=== PATIENT | female | born 1955 | race Caucasian/White ===

== ENCOUNTER → 2019-12-12 14:53 | Outpatient (CLI) | payer OTHER, SELFPAY ==
[2019-12-12 15:49] LABS: Add Manual Diff / Slide Review NO; Basophils Absolute Auto 100 /uL (0-100); Basophils Percent Auto 0.7 % (0-2); Eosinophils Absolute Auto 100 /uL (0-450); Eosinophils Percent Auto 1.9 % (2-4); Hematocrit 45.8 % (36-46); Hemoglobin 15.1 g/dL (12.0-16.0); Lymphocytes Absolute Auto 1400 /uL (1100-4500); Lymphocytes Percent Auto 18.6 % (25-40); Mean Corpuscular Hemoglobin 28.3 PG (26-34); Mean Corpuscular Volume 85.8 fL (80-100); Monocytes Absolute Auto 500 /uL (0-900); Monocytes Percent Auto 6.9 % (3-14); Neutrophils Absolute Auto 5500 /uL (1500-7000); Neutrophils Percent Auto 71.9 % (50-75); Platelet Count 336 X10^3/uL (150-400); Red Blood Cell Count 5.34 X10^6/uL (4.0-5.2); White Blood Cell Count 7.6 X10^3/uL (4.5-11.0)
[2019-12-12 16:15] LABS: Alanine Aminotransferase 10 IU/L (<35); Albumin 4.2 g/dL (3.5-5.0); Albumin Globulin Ratio 1.4 (1.0-2.8); Alkaline Phosphatase 71 U/L (38-126); Aspartate Aminotransferase 22 IU/L (14-36); BUN Creatinine Ratio 14.5 (6-22); Bilirubin Total 0.4 mg/dL (0.2-1.3); Blood Urea Nitrogen 10 mg/dL (7-17); C-Reactive Protein Quant 1.2 mg/dL (<1.0); Calcium 9.1 mg/dL (8.4-10.2); Carbon Dioxide 30 mmol/L (22-32); Chloride 97 mmol/L (98-107); Estimated Glomerular Filt Rate > 60.0 mL/min (>60); Glucose 90 mg/dL (80-110); HEMOLYSIS < 15 (0-50); Potassium 4.9 mmol/L (3.4-5.1); Sodium 133 mmol/L (137-145); Total Protein 7.2 g/dL (6.3-8.2)
== END ==
PROVIDERS: PCP Family Medicine; Referring Provider Family Medicine; Visit Provider Family Medicine
DX: N63.20 Unspecified lump in the left breast, unspecified quadrant (principal)
CPT/HCPCS: 36415; 80053; 85025; 86140

== ENCOUNTER → 2020-06-16 15:38 | Outpatient (CLI) | payer OTHER, SELFPAY ==
[2020-06-16 16:42] LABS: BUN Creatinine Ratio 22.4 (6-22); Blood Urea Nitrogen 13 mg/dL (7-17); Estimated Glomerular Filt Rate > 60.0 mL/min (>60)
== END ==
PROVIDERS: PCP Family Medicine; Referring Provider Family Medicine; Visit Provider Family Medicine
DX: C50.919 Malignant neoplasm of unspecified site of unspecified female breast (principal); Z01.812 Encounter for preprocedural laboratory examination
CPT/HCPCS: 36415; 82565; 84520

== ENCOUNTER → 2020-07-31 07:46 | Outpatient (CLI) | payer OTHER, SELFPAY ==
[2020-07-31 10:01] LABS: Add Manual Diff / Slide Review NO; Basophils Absolute Auto 0 /uL (0-100); Basophils Percent Auto 0.6 % (0-2); Eosinophils Absolute Auto 100 /uL (0-450); Hematocrit 44.1 % (36-46); Lymphocytes Absolute Auto 1000 /uL (1100-4500); Lymphocytes Percent Auto 15.5 % (25-40); Mean Corpuscular Hemoglobin 28.4 PG (26-34); Mean Corpuscular Volume 83.4 fL (80-100); Monocytes Absolute Auto 400 /uL (0-900); Monocytes Percent Auto 6.9 % (3-14); Neutrophils Absolute Auto 4800 /uL (1500-7000); Platelet Count 318 X10^3/uL (150-400); Red Blood Cell Count 5.28 X10^6/uL (4.0-5.2); Red Cell Distribution Width 13.2 % (11.6-14.8); White Blood Cell Count 6.3 X10^3/uL (4.5-11.0)
[2020-07-31 10:19] LABS: Alanine Aminotransferase 12 IU/L (<35); Albumin 4.2 g/dL (3.5-5.0); Albumin Globulin Ratio 1.4 (1.0-2.8); Alkaline Phosphatase 75 U/L (38-126); Aspartate Aminotransferase 25 IU/L (14-36); BUN Creatinine Ratio 18.2 (6-22); Bilirubin Total 0.4 mg/dL (0.2-1.3); Blood Urea Nitrogen 10 mg/dL (7-17); Calcium 8.9 mg/dL (8.4-10.2); Carbon Dioxide 27 mmol/L (22-32); Chloride 95 mmol/L (98-107); Cholesterol 176 mg/dL (140-199); Estimated Glomerular Filt Rate > 60.0 mL/min (>60); Globulin 2.9 g/dL (1.7-4.1); Glucose 86 mg/dL (80-110); HDL Cholesterol 39 mg/dL (40-60); HEMOLYSIS < 15 (0-50); LDL Cholesterol Calculated 118 mg/dL (<100); Potassium 4.4 mmol/L (3.4-5.1); Sodium 130 mmol/L (137-145); Total Protein 7.1 g/dL (6.3-8.2); Triglycerides 97 mg/dL (35-150)
== END ==
PROVIDERS: PCP Family Medicine; Referring Provider Family Medicine; Visit Provider Family Medicine
DX: Z00.00 Encounter for general adult medical examination without abnormal findings (principal); Z01.812 Encounter for preprocedural laboratory examination; C50.919 Malignant neoplasm of unspecified site of unspecified female breast
CPT/HCPCS: 36415; 80053; 80061; 82670; 83001; 85025

== ENCOUNTER → 2020-09-01 16:17 | Outpatient (CLI) | payer OTHER, SELFPAY | PROVIDERS: PCP Family Medicine; Visit Provider Nurse Practitioner Family | DX: L60.8 Other nail disorders (principal) | CPT/HCPCS: 87102 ==

== ENCOUNTER 2024-05-22 09:00 | Emergency (ER) | payer MEDICARE, OTHER, SELFPAY ==
[2024-05-22] VITALS (13 sets, daily range): BP systolic 113–148; BP diastolic 56–93; PULSE 103–142; RESP 14–27; TEMP 37.1; O2SAT 94–98; BMI 25.2
--- NOTE | 2024-05-22 09:03 | DI.RAD.S_ITS ---
PROCEDURE: XR CHEST 1V INDICATIONS: chest pain TECHNIQUE: One view of the chest was acquired. COMPARISON: CT, CT CHEST ABDOMEN PELVIS WITH CONTRAST, 07/05/2020, 14:29. FINDINGS: Surgical changes and devices: Several surgical clips left breast, probable prior breast carcinoma surgery. Lungs and pleura: Lungs are clear. No pleural effusions or pneumothorax. Chronic mild elevation of the right hemidiaphragm. Mild linear scarring lateral left lower lobe. Mediastinum: Mediastinal contours appear normal. Heart size is normal. Bones and chest wall: No suspicious bony lesions. Overlying soft tissues appear unremarkable. IMPRESSION: No acute cardiopulmonary abnormality is seen. Dictated by: Patrick Malcolm M.D. on 05/22/2024 at 9:30 Approved by: Patrick Malcolm M.D. on 05/22/2024 at 9:31
--- NOTE | 2024-05-22 09:07 | EKG_ITS ---
[address] [address] Test Date: 2024-05-22 Pat Name: Celeste Miles Department: [facility] Room: Gender: Female Sales Assistant: MAURISIO : 1955 Requested By: Order Number: [id number] Reading MD: Yasmani Joseph MD Measurements Intervals [place] Rate: 135 P: 18 MI: 112 QRS: 39 QRSD: 66 T: 13 QT: 300 QTc: 450 Interpretive Statements Sinus tachycardia Electronically Signed On 05-23-2024 6:49:34 PST by Yasmani Joseph MD
--- NOTE | 2024-05-22 09:35 | ED.ARRPALP ---
HPI - Arrhythmia/Palpitations General Chief Complaint: Arrhythmia/Palpitations Stated Complaint: afib Time Seen by Provider: 05/22/24 09:31 Source: patient, RN notes reviewed and old records reviewed Mode of arrival: Family Vehicle Limitations: no limitations History of Present Illness HPI narrative: 68-year-old female with history of breast cancer on letrozole and Xanax PRN, remote history of atrial fibrillation 1st onset was in 1988 was on digoxin intermittently episode stopped after menopause patient is not anticoagulated or on any rate control medications. Patient states in the past she was also had had improvement with a quarter tablet of 0.25 mg alprazolam she has a lot of palpitations and anxiety. Patient states earlier this morning started feeling her heart rate was elevated in the 150 she stated and actually feel your regular it was more regular. Denies any chest pain or pressure, no shortness of breath. No fevers or chills. No cough cold or congestion. No new swelling in extremities no issues with bowel movements or urination. No nausea or vomiting. No syncope. Patient notes feels little bit different when she was had her atrial fibular episodes which feel more in her neck this felt a little bit more epigastric. She has been noted to sometimes have an elevated heart rate with her oncology visits but reports she was sinus tach and I regular. States current medications or letrozole and Xanax PRN. She is currently in treatment has had lumpectomy and prior knee surgery. No known drug allergies. No tobacco, alcohol or recreational drugs. Patient has not had any long distance travel. Follows locally for primary care with . Oncology is Dr. Kang with [facility] oncology. Related Data Previous Rx's Medication Instructions Recorded alprazolam 0.25 mg tablet 0.25 mg PO Q DAY PRN PRN anxiety 07/26/20 #20 tabs ketoconazole 2 % topical cream 1 applic topical BID #30 grams 09/01/20 alprazolam 0.25 mg tablet 0.25 mg PO DAILY PRN anxiety #10 05/22/24 tabs Allergies Allergy/AdvReac Type Severity Reaction Status Date / Time No Known Allergies Allergy Uncoded 03/05/23 08:11 Review of Systems Review of Systems ROS Unobtainable: All systems reviewed & are unremarkable except as noted in HPI and below Patient History Medical History (Updated 02/13/25 @ 12:22 by Melissa Reaves DO) Rosacea Mumps Measles Vertigo Mild acquired hearing loss Mild cataract of left eye Hemorrhoids (2005) Atrial fibrillation 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 Mother No problems noted. Social History marital status: number of children: 1 household members: spouse education level: college occupational status: employed (self employed) Smoking Status: Never smoker alcohol intake: current (social) substance use type: does not use Smoking Status: Never smoker Exam Narrative Exam Narrative: GENERAL: Alert and oriented x three, female in mild distress HEENT: Head normocephalic, atraumatic, EOMI, pupils reactive, face symmetric, moist mucous membranes NECK: Supple, full range of motion CARDIOVASCULAR: Tachycardic and regular without murmurs, rubs or gallops. No edema. No JVD. Heart rates proximally 120s on monitor. RESPIRATORY: Breath sounds equal bilaterally, no wheezes rales or rhonchi. No tachypnea or accessory muscle use. ABDOMEN: Soft, nontender. Normoactive bowel sounds all 4 quadrants. No guarding or rebound, rigidity, no mass : No CVA tenderness EXTREMITIES: Normal range of motion, no clubbing or edema. Neurovascularly intact NEUROLOGICAL: Cranial nerves II through XII grossly intact. Moving all extremities SKIN: Warm, dry, no petechiae, no rashes or lesions. Initial Vital Signs Initial Vital Signs: Vital Signs Temperature 98.7 F 05/22/24 09:00 Pulse Rate 142 H 05/22/24 09:00 Respiratory Rate 24 05/22/24 09:00 Blood Pressure 135/69 05/22/24 09:00 Pulse Oximetry 97 05/22/24 09:00 Oxygen Delivery Method Room Air 05/22/24 09:00 Course Orders Ordered: Discontinued Medications Alprazolam (Alprazolam 0.25 Mg Tablet) 0.0625 mg PO NOW ONE Stop: 05/22/24 10:53 Last Admin: 05/22/24 11:29 Dose: 0.0625 mg Documented By: HARISH Aspirin (Aspirin 81 Mg Chew Tab) 324 mg PO NOW ONE Stop: 05/22/24 09:04 Last Admin: 05/22/24 09:39 Dose: Not Given Documented By: PARAM Sodium Chloride (Normal Saline 0.9%) 1,000 mls @ 1,000 mls/hr IV BOLUS PRN PRN Reason: Fluid replacement Vital Signs Vital signs: Vital Signs - 8 hr 05/22/24 09:00 05/22/24 09:07 05/22/24 09:07 Temperature 98.7 F Pulse Rate 142 H 135 H Respiratory Rate 24 18 Blood Pressure 135/69 135/69 Pulse Oximetry 97 98 Oxygen Delivery Method Room Air Room Air 05/22/24 09:30 05/22/24 09:30 05/22/24 10:00 Temperature Pulse Rate 103 H 105 H Respiratory Rate 24 23 Blood Pressure 123/58 L Pulse Oximetry 97 97 Oxygen Delivery Method 05/22/24 10:00 05/22/24 10:30 05/22/24 10:32 Temperature Pulse Rate 115 H 117 H Respiratory Rate 22 25 H Blood Pressure 113/57 L Pulse Oximetry 96 97 Oxygen Delivery Method 05/22/24 10:32 05/22/24 11:06 05/22/24 11:07 Temperature Pulse Rate 120 H 117 H Respiratory Rate 14 Blood Pressure 126/93 H Pulse Oximetry 94 96 Oxygen Delivery Method 05/22/24 11:07 05/22/24 11:30 05/22/24 11:30 Temperature Pulse Rate 112 H Respiratory Rate Blood Pressure 136/83 148/65 H Pulse Oximetry 96 Oxygen Delivery Method 05/22/24 11:49 05/22/24 11:49 05/22/24 12:00 Temperature Pulse Rate 113 H 109 H Respiratory Rate 26 H Blood Pressure 121/66 Pulse Oximetry 96 95 Oxygen Delivery Method 05/22/24 12:00 Temperature Pulse Rate Respiratory Rate Blood Pressure 114/62 Pulse Oximetry Oxygen Delivery Method MDM - Arrhythmia/Palpitations Lab Data 05/22/24 09:23 05/22/24 09:23 Labs: Lab Results 05/22/24 Range/Units 09:23 WBC 8.3 (4.5-11.0) X10^3/uL RBC 5.47 H (4.0-5.2) X10^6/uL Hgb 14.8 (12.0-16.0) g/dL Hct 45.7 (36-46) % MCV 83.7 (80-100) fL MCH 27.1 (26-34) PG MCHC 32.4 (30-36) % RDW 14.5 (11.6-14.8) % Plt Count 402 H (150-400) X10^3/uL Neut % (Auto) 78.6 H (50-75) % Lymph % (Auto) 13.6 L (25-40) % Benson % (Auto) 4.9 (3-14) % Eos % (Auto) 2.4 (2-4) % Baso % (Auto) 0.5 (0-2) % Neut # (Auto) 6500 (6744-9590) /uL Lymph # (Auto) 1100 (9200-0704) /uL Benson # (Auto) 400 (0-900) /uL Eos # (Auto) 200 (0-450) /uL Baso # (Auto) 0 (0-100) /uL PT 12.3 (9.4-12.5) SECONDS INR 1.1 (0.9-1.3) APTT 33 (25.1-36.5) SECONDS Sodium 137 (137-145) mmol/L Potassium 3.8 (3.4-5.1) mmol/L Chloride 102 (98-107) mmol/L Carbon Dioxide 27 (22-32) mmol/L BUN 11 (7-17) mg/dL Creatinine 0.76 (0.52-1.04) mg/dL Estimated GFR > 60 (>60) mL/min BUN/Creatinine Ratio 14.5 (6-22) Glucose 186 H (80-110) mg/dL Calcium 9.4 (8.4-10.2) mg/dL Magnesium 2.1 (1.6-2.3) mg/dL Total Bilirubin 0.7 (0.2-1.3) mg/dL AST 31 (14-36) IU/L ALT 22 (<35) IU/L Alkaline Phosphatase 143 H (38-126) U/L Total Creatine Kinase 25 L (30-135) U/L Troponin I < 0.012 (0.01-0.034) ng/mL NT-Pro-B Natriuret Pep 30 (<125) pg/mL Total Protein 7.8 (6.3-8.2) g/dL Albumin 4.3 (3.5-5.0) g/dL Globulin 3.5 (1.7-4.1) g/dL Albumin/Globulin Ratio 1.2 (1.0-2.8) Lipase 132 (23-300) U/L Imaging Data Chest x-ray: Radiologist's Impresson: [address] [address] XRay Report Signed Patient: Celeste Miles MR#: [id number] : 1955 Acct:[id number] Age/Sex: 68 / F Date of Service: 05/22/24 Loc: ED Accession Number: [id number] Procedure: XR chest 1V Ordering Provider: Melissa Reaves D.O. PROCEDURE: XR CHEST 1V INDICATIONS: chest pain TECHNIQUE: One view of the chest was acquired. COMPARISON: CT, CT CHEST ABDOMEN PELVIS WITH CONTRAST, 07/05/2020, 14:29. FINDINGS: Surgical changes and devices: Several surgical clips left breast, probable prior breast carcinoma surgery. Lungs and pleura: Lungs are clear. No pleural effusions or pneumothorax. Chronic mild elevation of the right hemidiaphragm. Mild linear scarring lateral left lower lobe. Mediastinum: Mediastinal contours appear normal. Heart size is normal. Bones and chest wall: No suspicious bony lesions. Overlying soft tissues appear unremarkable. IMPRESSION: No acute cardiopulmonary abnormality is seen. Dictated by: Patrick Malcolm M.D. on 05/22/2024 at 9:30 Approved by: Patrick Malcolm M.D. on 05/22/2024 at 9:31 CT scan - chest: Radiologist's Impresson: Celeste Miles??68??F??1955 ? Allergy/Adv: [No Known Allergies] Close Chest CTA (Signed) Patrick Malcolm - 05/22/24 Chest X-Ray (Signed) Patrick Malcolm - 05/22/24 DI Result CC 06/22/20 DI Result CC 01/26/20 DI Result CC 01/26/20 Mammogram Result CC 01/14/20 DI Result CC 01/14/20 DI Result 01/14/20 Launch?Image Formerly [facility] [address] [place] [address] Scan Report Signed Patient: Celeste Miles MR#: [id number] : 1955 Acct:[id number] Age/Sex: 68 / F Date of Service: 05/22/24 Loc: ED Accession Number: [id number] Procedure: CT angio chest PE protocol Ordering Provider: Melissa Reaves D.O. PROCEDURE: CT ANGIO CHEST PE PROTOCOL INDICATIONS: sinus tachy, known breast ca TECHNIQUE: After the administration of intravenous contrast, 2 mm thick sections acquired from the pulmonary apices to the posterior costophrenic angles. 3-dimensional maximum intensity projection (MIP) coronal and sagittal reformats were then acquired through the thorax. For radiation dose reduction, the following was used: automated exposure control, adjustment of mA and/or kV according to patient size. COMPARISON: [facility], CR, XR CHEST 1V, 05/22/2024, 9:06. CT, CT CHEST ABDOMEN PELVIS WITH CONTRAST, 07/05/2020, 14:29. FINDINGS: Image quality: Diagnostic. Pulmonary arteries: Pulmonary arteries are normal in size, and demonstrate no intraluminal filling defects to suggest central pulmonary embolism. Lower Neck: No enlarged lymph nodes. Thyroid: No thyroid nodules which require sonographic follow up, per consensus guidelines. Axillae: No enlarged lymph nodes. Chest Wall: Unremarkable on the right but there is a large malignant-appearing left breast mass measuring up to slightly over 8 cm and with anterior tumor necrosis as the likely cause for irregularity in that portion of the neoplasm. An adjacent 1.8 cm additional irregular malignant-appearing mass may represent malignant adenopathy which has extended into the adjacent soft tissues also. Bones: There is evidence of metastatic disease involving what appears to be the T6 vertebral body without pathologic fracture and a superior endplate L1 area fracture is noted, chronicity uncertain. Mid sternal osteolysis also is present centered within the marrow space. Lungs and Pleura: No pneumothorax or pleural effusions. No consolidation suggestive of pneumonia is seen. There are scattered pulmonary a sub cm nodules not previously present, consistent with metastatic disease. For example, on the left at the upper lobe medially, series 5, image 64. On the left posteriorly, medially, near the pleural surface, 5/59. Small peripheral nodule at the same axial level on the left laterally. Laterally at the right mid lung, lower lobe, 5/122. Laterally at the left lower lobe near an area of atelectasis 5/153. Within the left costophrenic sulcus posteriorly, 5/204. There is asymmetric mild elevation of the right hemidiaphragm. Heart: Heart size is normal. No pericardial effusion. Thoracic Vessels: No aortic aneurysm. Mediastinum and Faustina: No enlarged lymph nodes. Esophagus: No wall thickening. No hiatal hernia. Upper Abdomen: Visualized upper abdomen solid organs and bowel loops appear normal. IMPRESSION: No pulmonary embolus. Scattered subcentimeter bilateral pulmonary nodules not previously present, and in this clinical circumstance they are presumed to be metastatic in origin. Large malignant-appearing left breast mass, anteriorly necrotic. Adjacent presumed malignant selvin involvement. Metastatic disease involving the thoracic spine without pathologic fracture. Possible additional involvement at the upper lumbar margin. Sternal osteolysis also is present. Dictated by: Patrick Malcolm M.D. on 05/22/2024 at 11:28 Approved by: Patrick Malcolm M.D. on 05/22/2024 at 11:43 ECG Data Attestation: I personally reviewed and interpreted this ECG as follows: Prior ECG tracings: not available for review Interpretation: Sinus tachycardia rate of 135, MI 112 QRS is 66 QTC of 450, no acute ST elevation or depression noted. No priors for comparison. [facility] Narrative Medical decision making narrative: 68-year-old female history of atrial fibrillation but appears to be sinus tachycardia, patient's has a remote history of AFib is not anticoagulated. She does report current breast cancer on letrozole with a prior lumpectomy. Based on this cardiac workup does not show any major electrolyte abnormalities but patient should have CT angio to rule out pulmonary embolism. Labs show white count 8.3 hemoglobin of 14 8 platelets of 402. Coags are negative electrolytes are overall appropriate potassium 3.8 Mag is 2.1 glucose is 186 creatinine 0.76 alk-phos is 143 total CK is 25 troponins less than 0.012, BNP is 30. EKG shows sinus tachycardia. Chest x-ray shows no acute cardiopulmonary abnormality. CT angio chest no PE, scattered subcentimeter bilateral pulmonary nodules not previously present or presumed metastatic in origin large malignant-appearing left breast mass anteriorly necrotic adjacent presumed malignant selvin involvement. Metastatic disease involving thoracic spine without pathological fracture possible additional involvement of the upper left lumbar margin sternal osteolysis is present. No pericardial effusion, heart size is normal. Patient received 500 mL bolus of saline, asked she can take a quarter tablet of 0.25 mg alprazolam which is what she normally takes at home. We will attempt to give this order in place. Patient's heart rates improved as about 105 here in the department after fluids and medication. Follow up with patient she was metastatic change but no pulmonary embolism. Discussed with patient her findings from today. States her findings are known in terms of breast mass, lytic lesions and lung changes. Would like to continue with some additional fluids but felt appropriate for discharge home. Heart rates to 105 in the room patient prefers to return home and orally hydrate rather than had additional fluids here. She was felt appropriate and safe for discharge home. Patient does ask for copy of her labs. She does note there maybe a component of dehydration she has not been eating or drinking much in the last day. Discharge Plan Departure Patient Disposition: Home Clinical Impression: Tachycardia, Breast cancer Activity Restrictions/Additional Instructions: Your labs today are overall reassuring, your CT of your chest does not show any blood clots or pericardial effusion you do have metastatic changes in the lungs as well as the thoracic spine and possibly the upper lumbar region as well as the sternal area. Share this information with your oncologist if you had not already been told this information. Continue to hydrate regularly. Prescription for your alprazolam, you can take a quarter tablet of 0.25 mg daily as needed. Prescription was sent to [facility] in [place]. Please return if you have fevers, new chest pain or shortness of breath, lightheadedness or passing out, new swelling of your extremities, vomiting or other new or concerning changes. Prescriptions: New alprazolam 0.25 mg tablet 0.25 mg PO DAILY PRN (Reason: anxiety) Qty: 10 0RF No Action alprazolam 0.25 mg tablet 0.25 mg PO Q DAY PRN PRN (Reason: anxiety) Qty: 20 0RF ketoconazole 2 % cream 1 applic topical BID Qty: 30 0RF Rx Instructions: use BID and extend out from affected area at least one inch Referrals: Dunia Vasquez DO [Primary Care Provider] - Stand Alone Forms: Patient Portal/API/Survey
[2024-05-22 09:36] LABS: Add Manual Diff / Slide Review NO; Basophils Absolute Auto 0 /uL (0-100); Basophils Percent Auto 0.5 % (0-2); Eosinophils Absolute Auto 200 /uL (0-450); Eosinophils Percent Auto 2.4 % (2-4); Hematocrit 45.7 % (36-46); Hemoglobin 14.8 g/dL (12.0-16.0); Lymphocytes Absolute Auto 1100 /uL (1100-4500); Lymphocytes Percent Auto 13.6 % (25-40); Mean Corpuscular HGB Conc 32.4 % (30-36); Mean Corpuscular Hemoglobin 27.1 PG (26-34); Mean Corpuscular Volume 83.7 fL (80-100); Monocytes Absolute Auto 400 /uL (0-900); Monocytes Percent Auto 4.9 % (3-14); Neutrophils Absolute Auto 6500 /uL (1500-7000); Neutrophils Percent Auto 78.6 % (50-75); Platelet Count 402 X10^3/uL (150-400); Red Blood Cell Count 5.47 X10^6/uL (4.0-5.2); Red Cell Distribution Width 14.5 % (11.6-14.8); White Blood Cell Count 8.3 X10^3/uL (4.5-11.0)
[2024-05-22 09:47] LABS: INR 1.1 (0.9-1.3); Prothrombin Time 12.3 SECONDS (9.4-12.5)
[2024-05-22 09:50] LABS: PTT Partial Thromboplastin Tim 33 SECONDS (25.1-36.5)
[2024-05-22 09:53] LABS: Alanine Aminotransferase 22 IU/L (<35); Albumin 4.3 g/dL (3.5-5.0); Albumin Globulin Ratio 1.2 (1.0-2.8); Alkaline Phosphatase 143 U/L (38-126); Aspartate Aminotransferase 31 IU/L (14-36); BUN Creatinine Ratio 14.5 (6-22); Bilirubin Total 0.7 mg/dL (0.2-1.3); Blood Urea Nitrogen 11 mg/dL (7-17); Calcium 9.4 mg/dL (8.4-10.2); Carbon Dioxide 27 mmol/L (22-32); Chloride 102 mmol/L (98-107); Creatine Kinase 25 U/L (30-135); Estimated Glomerular Filt Rate > 60 mL/min (>60); Globulin 3.5 g/dL (1.7-4.1); Glucose 186 mg/dL (80-110); HEMOLYSIS < 15 (0-50); Lipase 132 U/L (23-300); Magnesium 2.1 mg/dL (1.6-2.3); Potassium 3.8 mmol/L (3.4-5.1); Sodium 137 mmol/L (137-145); Total Protein 7.8 g/dL (6.3-8.2)
[2024-05-22 10:05] LABS: NT-proBNP (BNP-Adult 18+) 30 pg/mL (<125); Troponin I < 0.012 ng/mL (0.01-0.034)
--- NOTE | 2024-05-22 10:10 | PC.NURSE ---
Pt reports hx of afib 20-30years ago. Pt denies, fever, cough, congestion, back pain, or chest pain. Pt reports feeling anxious. Respirations regular and unlabored. Pt monitor appears in sinus tach.
--- NOTE | 2024-05-22 10:52 | DI.CT.S_ITS ---
PROCEDURE: CT ANGIO CHEST PE PROTOCOL INDICATIONS: sinus tachy, known breast ca TECHNIQUE: After the administration of intravenous contrast, 2 mm thick sections acquired from the pulmonary apices to the posterior costophrenic angles. 3-dimensional maximum intensity projection (MIP) coronal and sagittal reformats were then acquired through the thorax. For radiation dose reduction, the following was used: automated exposure control, adjustment of mA and/or kV according to patient size. COMPARISON: [facility], CR, XR CHEST 1V, 05/22/2024, 9:06. CT, CT CHEST ABDOMEN PELVIS WITH CONTRAST, 07/05/2020, 14:29. FINDINGS: Image quality: Diagnostic. Pulmonary arteries: Pulmonary arteries are normal in size, and demonstrate no intraluminal filling defects to suggest central pulmonary embolism. Lower Neck: No enlarged lymph nodes. Thyroid: No thyroid nodules which require sonographic follow up, per consensus guidelines. Axillae: No enlarged lymph nodes. Chest Wall: Unremarkable on the right but there is a large malignant-appearing left breast mass measuring up to slightly over 8 cm and with anterior tumor necrosis as the likely cause for irregularity in that portion of the neoplasm. An adjacent 1.8 cm additional irregular malignant-appearing mass may represent malignant adenopathy which has extended into the adjacent soft tissues also. Bones: There is evidence of metastatic disease involving what appears to be the T6 vertebral body without pathologic fracture and a superior endplate L1 area fracture is noted, chronicity uncertain. Mid sternal osteolysis also is present centered within the marrow space. Lungs and Pleura: No pneumothorax or pleural effusions. No consolidation suggestive of pneumonia is seen. There are scattered pulmonary a sub cm nodules not previously present, consistent with metastatic disease. For example, on the left at the upper lobe medially, series 5, image 64. On the left posteriorly, medially, near the pleural surface, 5/59. Small peripheral nodule at the same axial level on the left laterally. Laterally at the right mid lung, lower lobe, 5/122. Laterally at the left lower lobe near an area of atelectasis 5/153. Within the left costophrenic sulcus posteriorly, 5/204. There is asymmetric mild elevation of the right hemidiaphragm. Heart: Heart size is normal. No pericardial effusion. Thoracic Vessels: No aortic aneurysm. Mediastinum and Faustina: No enlarged lymph nodes. Esophagus: No wall thickening. No hiatal hernia. Upper Abdomen: Visualized upper abdomen solid organs and bowel loops appear normal. IMPRESSION: No pulmonary embolus. Scattered subcentimeter bilateral pulmonary nodules not previously present, and in this clinical circumstance they are presumed to be metastatic in origin. Large malignant-appearing left breast mass, anteriorly necrotic. Adjacent presumed malignant selvin involvement. Metastatic disease involving the thoracic spine without pathologic fracture. Possible additional involvement at the upper lumbar margin. Sternal osteolysis also is present. Dictated by: Patrick Malcolm M.D. on 05/22/2024 at 11:28 Approved by: Patrick Malcolm M.D. on 05/22/2024 at 11:43
[2024-05-22] MEDS: ALPRAZolam 0.25 MG TABLET 0.0625 MG PO (11:29)
== END 2024-05-22 13:09 | disposition home or self-care (01) ==
PROVIDERS: Emergency Provider Emergency Medicine; PCP Family Medicine
DX: R00.0 Tachycardia, unspecified (principal); C50.912 Malignant neoplasm of unspecified site of left female breast; C79.51 Secondary malignant neoplasm of bone; F41.9 Anxiety disorder, unspecified; R00.2 Palpitations; Z86.79 Personal history of other diseases of the circulatory system
CPT/HCPCS: 36415; 71045; 71275; 80053; 82550; 83690; 83735; 83880; 84484; 85025; 85610; 85730; 93005; 93010; 99284; 99285; Q9967

== ENCOUNTER 2024-05-29 05:23 | Emergency (ER) | payer MEDICARE, OTHER, SELFPAY ==
[2024-05-29] VITALS (7 sets, daily range): BP systolic 115–125; BP diastolic 53–88; PULSE 107–120; RESP 16–18; TEMP 36.3; O2SAT 97–99; BMI 25.2
--- NOTE | 2024-05-29 06:53 | PC.NURSE ---
with provider, removed muliple layer dressing from left breast, large blood clots under dressing with bottom dressings completely saturated. No active bleeding visible in wound. Placed surgifoam over wound covered by 3 4x4 alyvn dressings. at this time.
--- NOTE | 2024-05-29 07:05 | ED_ITS ---
HPI - Wound/Laceration General Chief Complaint: Wound/Laceration Stated Complaint: wound on lt breast that wont stop bleeding Time Seen by Provider: 05/29/24 06:38 Source: patient Mode of arrival: Wheelchair History of Present Illness HPI narrative: 68-year-old female with bleeding from left breast ulcer, history of breast cancer diagnosed 11 years ago, prior remote lumpectomy, last summer 2023 she started having an ulcerating left breast mass through the skin, reports that she had attempts at trying to get in with [facility] but was unable to do so, has established with oncology at [facility] with whom she has appointment this Sunday, had bleeding from the ulcerating left breast mass that she self applied occlusive dressings, clot, here for concern about bleeding. No blood thinner medications. No other recent sites of bleeding. Related Data Previous Rx's Medication Instructions Recorded alprazolam 0.25 mg tablet 0.25 mg PO Q DAY PRN PRN anxiety 07/26/20 #20 tabs ketoconazole 2 % topical cream 1 applic topical BID #30 grams 09/01/20 alprazolam 0.25 mg tablet 0.25 mg PO DAILY PRN anxiety #10 05/22/24 tabs Allergies Allergy/AdvReac Type Severity Reaction Status Date / Time No Known Allergies Allergy Uncoded 03/05/23 08:11 Patient History Medical History (Updated 05/29/24 @ 07:10 by Curtis Cristobal MD) Rosacea Mumps Measles Vertigo Mild acquired hearing loss Mild cataract of left eye Hemorrhoids (2005) Atrial fibrillation 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 Mother No problems noted. Social History marital status: number of children: 1 household members: spouse education level: college occupational status: employed (self employed) Smoking Status: Never smoker alcohol intake: current (social) substance use type: does not use Smoking Status: Never smoker Exam Narrative Exam Narrative: GENERAL: Well-developed patient, in mild distress. HEAD: Atraumatic. Normocephalic. EYES: Pupils equal round and reactive. Extraocular motions intact. No scleral icterus. No injection or drainage. ENT: Nose without bleeding, purulent drainage. Throat without erythema, tonsillar hypertrophy or exudate. Airway patent. NECK: Trachea midline. Non tender CARDIOVASCULAR: Regular rate and rhythm without murmurs, gallops, or rubs. RESPIRATORY: Clear to auscultation. Breath sounds equal bilaterally. No wheezes, rales, or rhonchi. Breast: Left breast with upper outer ulcerating mass a proximally 8 by 6 cm lobulated, no active bleeding when dressing was removed, some clot on dressing pads that were removed. GASTROINTESTINAL: Abdomen soft, non-tender, nondistended. EXTREMITIES: No edema or joint tenderness. BACK: Nontender without deformity or crepitance. No flank tenderness. NEURO: AOx3. Motor functions grossly nonfocal SKIN: No rash or erythema of visible areas Initial Vital Signs Initial Vital Signs: Vital Signs Temperature 97.3 F L 05/29/24 05:34 Pulse Rate 120 H 05/29/24 05:34 Respiratory Rate 16 05/29/24 05:34 Blood Pressure 125/88 05/29/24 05:34 Pulse Oximetry 98 05/29/24 05:34 Oxygen Delivery Method Room Air 05/29/24 05:34 Course Orders Ordered: ED Orders 05/29/24 06:38 CBC Auto Diff [Complete Blood Count AUTO DIFF] Stat CMP [Comprehensive Metabolic Panel] Stat 05/29/24 06:39 Prothrombin Time INR Stat Vital Signs Vital signs: Vital Signs - 8 hr 05/29/24 05:34 05/29/24 05:46 05/29/24 06:00 Temperature 97.3 F L Pulse Rate 120 H 120 H 113 H Respiratory Rate 16 Blood Pressure 125/88 Pulse Oximetry 98 97 97 Oxygen Delivery Method Room Air 05/29/24 06:16 05/29/24 06:16 05/29/24 06:30 Temperature Pulse Rate 116 H 107 H Respiratory Rate Blood Pressure 116/53 L Pulse Oximetry 99 97 Oxygen Delivery Method 05/29/24 06:30 Temperature Pulse Rate Respiratory Rate Blood Pressure 115/56 L Pulse Oximetry Oxygen Delivery Method MDM - Wound/Laceration MDM Narrative Medical decision making narrative: 68-year-old female with left breast cancer with ulcerating mass, followed by [facility] oncology with whom she is supposed to have visit on Sunday, had bleeding from the ulcerating mass, applied occlusive dressings, still leaking him bleeding. Her dressings were removed, had clot, ulcerating mass was not actively bleeding but had likely recently blood. Surgifoam with occlusive dressing applied, no active bleeding. No bleeding noted thru new dressing. Increased heart rate noted, likely anxiety, we offered blood work but she said that she has had a fast heart rate in the past, chart history of anxiety, and feels anxious about the situation, she does not want blood work. Discharged home. Follow up with Oncology on Sunday06/02/24 as planned. She was also given further supplies of surgery follow up if she needs to change the dressing. Discharge Plan Departure Patient Disposition: Home Clinical Impression: Bleeding from wound, History of breast cancer Activity Restrictions/Additional Instructions: History of breast cancer, awaiting next follow up visit with Oncology [facility] this Sunday, known ulcerative left breast lesion, recently bleeding, treated with self administered occlusive dressings. Those dressings were removed which had adherent clot. There was no active bleeding of the wound. New dressing was placed with Surgifoam that tends to help form clot, with occlusive dressing overlying. Supplies given for dressing change if needed. Follow up with your oncologist this Sunday as planned. Return earlier to this/nearest emergency department for any change worsening symptoms or any concerns prior Prescriptions: No Action alprazolam 0.25 mg tablet 0.25 mg PO Q DAY PRN PRN (Reason: anxiety) Qty: 20 0RF ketoconazole 2 % cream 1 applic topical BID Qty: 30 0RF Rx Instructions: use BID and extend out from affected area at least one inch alprazolam 0.25 mg tablet 0.25 mg PO DAILY PRN (Reason: anxiety) Qty: 10 0RF Referrals: Dunia Vasquez DO [Primary Care Provider] - Stand Alone Forms: Patient Portal/API/Survey
== END 2024-05-29 07:22 | disposition home or self-care (01) ==
PROVIDERS: Emergency Provider Emergency Medicine; PCP Family Medicine
DX: L76.22 Postprocedural hemorrhage of skin and subcutaneous tissue following other procedure (principal); Z85.3 Personal history of malignant neoplasm of breast
CPT/HCPCS: 99281

== ENCOUNTER 2024-07-11 07:30 | Emergency (ER) | payer MEDICARE, OTHER, SELFPAY ==
[2024-07-11] VITALS (10 sets, daily range): BP systolic 102–129; BP diastolic 55–62; PULSE 51–132; RESP 13–25; TEMP 36.6; O2SAT 97–100; BMI 25.4
--- NOTE | 2024-07-11 07:50 | ED.WOUNDLAC ---
HPI - Wound/Laceration General Chief Complaint: Arrhythmia/Palpitations Stated Complaint: Bleeding Wound, Hypotensive Time Seen by Provider: 07/11/24 07:36 History of Present Illness HPI narrative: 60-year-old female seen last month with history of left breast ulcer with history of breast cancer diagnosed over 11 years ago status post lumpectomy but since last summer was having ulceration of the left breast mass through the skin and she does see wound care who apparently is actually colon to the come to see her at 10:30 a.m. this morning. Patient reports bleeding in the left breast region and was advised to come to the ER to be evaluated since her blood pressure was apparently a little bit low. Patient is on propranolol as needed for tachycardia but do not take any this morning she reports that she gets high heart rates when she goes to doctor offices but this is normal for her. She is not on any blood thinners, denies purulent discharge and denies fever and chills. Other than what is day 14 point review of system is negative Related Data Previous Rx's Medication Instructions Recorded alprazolam 0.25 mg tablet 0.25 mg PO Q DAY PRN PRN anxiety 07/26/20 #20 tabs ketoconazole 2 % topical cream 1 applic topical BID #30 grams 09/01/20 alprazolam 0.25 mg tablet 0.25 mg PO DAILY PRN anxiety #10 05/22/24 tabs Allergies Allergy/AdvReac Type Severity Reaction Status Date / Time No Known Allergies Allergy Uncoded 03/05/23 08:11 Review of Systems Review of Systems ROS Unobtainable: All systems reviewed & are unremarkable except as noted in HPI and below Patient History Medical History (Updated 07/11/24 @ 09:38 by Yasmani Fagan DO) Rosacea Mumps Measles Vertigo Mild acquired hearing loss Mild cataract of left eye Hemorrhoids (2005) Atrial fibrillation 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 Mother No problems noted. Social History (Reviewed 05/22/24 @ 11:02 by BASIL Kyle marital status: number of children: 1 household members: spouse education level: college occupational status: employed (self employed) Smoking Status: Never smoker alcohol intake: current (social) substance use type: does not use Exam Narrative Exam Narrative: GENERAL: [68] year old patient appears stated age. Well-developed patient, in mild distress. HEAD: Atraumatic. Normocephalic. EYES: Pupils equal round and reactive. Extraocular motions intact. No scleral icterus. No injection or drainage. ENT: Nose without bleeding, purulent drainage. Throat without erythema, tonsillar hypertrophy or exudate. Airway patent. NECK: Trachea midline. Non tender CARDIOVASCULAR: Tachycardic, Regular rate and rhythm without murmurs, gallops, or rubs. RESPIRATORY: Clear to auscultation. Breath sounds equal bilaterally. No wheezes, rales, or rhonchi. GASTROINTESTINAL: Abdomen soft, non-tender, nondistended. EXTREMITIES: No edema or joint tenderness. BACK: Nontender without deformity or crepitance. No flank tenderness. NEURO: AOx3. SKIN: Pt has L wound pad over L breast region, refuses to let me remove L wound pad but no bleeding or discharge visible Initial Vital Signs Initial Vital Signs: Vital Signs Temperature 98 F 07/11/24 07:47 Pulse Rate 132 H 07/11/24 07:47 Respiratory Rate 20 07/11/24 07:47 Blood Pressure 129/56 L 07/11/24 07:47 Pulse Oximetry 100 07/11/24 07:47 Oxygen Delivery Method Room Air 07/11/24 07:47 Course Orders Ordered: ED Orders 07/11/24 07:28 CBC Auto Diff [Complete Blood Count AUTO DIFF] Stat CMP [Comprehensive Metabolic Panel] Stat MAG [Magnesium] Stat TSH [Thyroid Stimulating Hormone] Stat 07/11/24 08:01 EKG-12 Lead Stat Lactated Ringer's (Lactated Ringers) 1,000 mls @ 1,000 mls/hr IV BOLUS ONE Stop: 07/11/24 09:45 Last Admin: 07/11/24 09:07 Dose: 1,000 mls/hr Documented By: PARAM Vital Signs Vital signs: Vital Signs - 8 hr 07/11/24 07:47 Temperature 98 F Pulse Rate 132 H Respiratory Rate 20 Blood Pressure 129/56 L Pulse Oximetry 100 Oxygen Delivery Method Room Air MDM - Wound/Laceration Lab Data 07/11/24 07:28 07/11/24 07:28 Labs: Lab Results 07/11/24 Range/Units 07:28 WBC 10.9 (4.5-11.0) X10^3/uL RBC 4.96 (4.0-5.2) X10^6/uL Hgb 13.6 (12.0-16.0) g/dL Hct 41.4 (36-46) % MCV 83.4 (80-100) fL MCH 27.5 (26-34) PG MCHC 33.0 (30-36) % RDW 14.7 (11.6-14.8) % Plt Count 335 (150-400) X10^3/uL Neut % (Auto) 82.0 H (50-75) % Lymph % (Auto) 11.7 L (25-40) % [place] % (Auto) 3.6 (3-14) % Eos % (Auto) 2.4 (2-4) % Baso % (Auto) 0.3 (0-2) % Neut # (Auto) 8900 H (5604-6228) /uL Lymph # (Auto) 1300 (1560-1910) /uL [place] # (Auto) 400 (0-900) /uL Eos # (Auto) 300 (0-450) /uL Baso # (Auto) 0 (0-100) /uL Sodium 137 (137-145) mmol/L Potassium 4.5 (3.4-5.1) mmol/L Chloride 102 (98-107) mmol/L Carbon Dioxide 24 (22-32) mmol/L BUN 16 (7-17) mg/dL Creatinine 0.72 (0.52-1.04) mg/dL Estimated GFR > 60 (>60) mL/min BUN/Creatinine Ratio 22.2 H (6-22) Glucose 188 H (80-110) mg/dL Calcium 8.8 (8.4-10.2) mg/dL Magnesium 1.9 (1.6-2.3) mg/dL Total Bilirubin 0.8 (0.2-1.3) mg/dL AST 48 H (14-36) IU/L ALT 22 (<35) IU/L Alkaline Phosphatase 87 (38-126) U/L Total Protein 7.4 (6.3-8.2) g/dL Albumin 4.1 (3.5-5.0) g/dL Globulin 3.3 (1.7-4.1) g/dL Albumin/Globulin Ratio 1.2 (1.0-2.8) TSH 3.62 (0.47-4.68) uIU/mL ECG Data Attestation: I personally reviewed and interpreted this ECG as follows: Interpretation: HR 115 VT 94 QRS [address]-t wave changes Sinus Tach with short VT interval Unchanged ffrom MDM Narrative Medical decision making narrative: All lab work, vital signs, nurse triage note, old medical records, old imaging studies and medication list reviewed. Differential diagnosis includes dehydration, anxiety, thyroid disorder, cellulitis, abscess, sepsis, MRSA. Patient has follow up appointment with wound care DC home to follow up with wound care. Patient did take half a pill of propranolol 10 mg dose which is equivalent to 5 mg here for her heart palpitations. Discharge Plan Departure Patient Disposition: Home Clinical Impression: BLAS (acute kidney injury), Bleeding from breast Instructions: DI for Dehydration -- Adult Activity Restrictions/Additional Instructions: Return with new or worsening symptoms. Keep hydrated follow up with wound care appointment today. Prescriptions: No Action alprazolam 0.25 mg tablet 0.25 mg PO Q DAY PRN PRN (Reason: anxiety) Qty: 20 0RF ketoconazole 2 % cream 1 applic topical BID Qty: 30 0RF Rx Instructions: use BID and extend out from affected area at least one inch alprazolam 0.25 mg tablet 0.25 mg PO DAILY PRN (Reason: anxiety) Qty: 10 0RF Referrals: Dunia Vasquez DO [Primary Care Provider] - Stand Alone Forms: Patient Portal/API/Survey
--- NOTE | 2024-07-11 07:59 | PC.NURSE ---
Pt vague and denies wanting to give history. Pt stated she has a history of high heart rate and take propanolol as needed. Pt states she does not see the correlation between high heart rate and low blood pressure however pt noted her bandage was soaked this morning with blood; pt educated on low bp/high hr w/ blood loss as well as infection risk. Pt reports she has wound care come multiple times a weeks so there is no risk of infection. Pt again educated on infection risk with having an open wound. Pt refuses to give medical history. Pt heart rate appears to be in sinus tach w/ rate in 130s.
--- NOTE | 2024-07-11 08:01 | EKG_ITS ---
[place] [id number] [place] [id number] Test Date: 2024-07-11 Pat Name: Celeste Miles Department: Room: Gender: Female Tape Weaver: JOSIE : 1955 Requested By: Order Number: [id number] Reading MD: Lit Dixon Measurements Intervals [place] Rate: 115 P: -10 [place]: 94 QRS: 23 QRSD: 62 T: 1 QT: 324 QTc: 448 Interpretive Statements Sinus tachycardia with short [place] Electronically Signed On 07-11-2024 19:11:19 PDT by Lit Dixon
[2024-07-11 08:09] LABS: Add Manual Diff / Slide Review NO; Basophils Absolute Auto 0 /uL (0-100); Basophils Percent Auto 0.3 % (0-2); Eosinophils Absolute Auto 300 /uL (0-450); Eosinophils Percent Auto 2.4 % (2-4); Hematocrit 41.4 % (36-46); Hemoglobin 13.6 g/dL (12.0-16.0); Lymphocytes Absolute Auto 1300 /uL (1100-4500); Lymphocytes Percent Auto 11.7 % (25-40); Mean Corpuscular Hemoglobin 27.5 PG (26-34); Mean Corpuscular Volume 83.4 fL (80-100); Monocytes Absolute Auto 400 /uL (0-900); Monocytes Percent Auto 3.6 % (3-14); Neutrophils Absolute Auto 8900 /uL (1500-7000); Platelet Count 335 X10^3/uL (150-400); Red Blood Cell Count 4.96 X10^6/uL (4.0-5.2); Red Cell Distribution Width 14.7 % (11.6-14.8); White Blood Cell Count 10.9 X10^3/uL (4.5-11.0)
[2024-07-11 08:16] LABS: Alanine Aminotransferase 22 IU/L (<35); Albumin 4.1 g/dL (3.5-5.0); Albumin Globulin Ratio 1.2 (1.0-2.8); Alkaline Phosphatase 87 U/L (38-126); Aspartate Aminotransferase 48 IU/L (14-36); BUN Creatinine Ratio 22.2 (6-22); Bilirubin Total 0.8 mg/dL (0.2-1.3); Blood Urea Nitrogen 16 mg/dL (7-17); Calcium 8.8 mg/dL (8.4-10.2); Carbon Dioxide 24 mmol/L (22-32); Chloride 102 mmol/L (98-107); Estimated Glomerular Filt Rate > 60 mL/min (>60); Globulin 3.3 g/dL (1.7-4.1); Glucose 188 mg/dL (80-110); Potassium 4.5 mmol/L (3.4-5.1); Sodium 137 mmol/L (137-145); Total Protein 7.4 g/dL (6.3-8.2)
[2024-07-11 08:17] LABS: HEMOLYSIS 76 (0-50); Magnesium 1.9 mg/dL (1.6-2.3)
[2024-07-11 08:47] LABS: Thyroid Stimulating Hormone 3.62 uIU/mL (0.47-4.68)
[2024-07-11] MEDS: LACTATED RINGERS 1,000 ML 1000 ML IV (09:07)
--- NOTE | 2024-07-11 09:52 | PC.NURSE ---
Stopped per pt request.
--- NOTE | 2024-07-11 09:53 | PC.NURSE ---
Bandage dry; no additional bleeding noted on bandage. Pt declined clean out driller of wound.
== END 2024-07-11 09:53 | disposition home or self-care (01) ==
PROVIDERS: Emergency Provider Family Medicine; PCP Family Medicine
DX: N17.9 Acute kidney failure, unspecified (principal); N64.59 Other signs and symptoms in breast; R00.0 Tachycardia, unspecified; Z85.3 Personal history of malignant neoplasm of breast
CPT/HCPCS: 80053; 83735; 84443; 85025; 93005; 96360; 99283; 99284